=== PATIENT | male | born 1965 | race Caucasian/White ===

== ENCOUNTER → 2016-11-10 | Outpatient (CLI) | payer BC ==
[~2016-11-10] MED LIST: CLTR1C90 TP; IBP800T PO; TEST200V3 IM; TRAM50TA2 PO
--- OUTSIDE RECORDS SUMMARY | 2016-11-10 11:53 | XMS REPORT | Continuity of Care Document ---
Author Author [facility] Organization [facility] Address Unknown Phone Unavailable Care Team Providers Care Pig Farmer Name Role Phone RACHAEL FERRER PP Insurance Providers Payer Name Policy Number Subscriber Name Relationship Work Comp [id number] Elver Hartmann Jr 01 Self / Same As Patient Advance Directives Directive Response Recorded Date Advance Directives N 06/15/13 8:07pm Health Care Power of Collection Manager N 02/14/13 10:10am Organ Donor N 06/15/13 8:07pm Problems No Known Problems or Medical conditions. Social History History Response Recorded Date/Time Alcohol Use Denies Use 06/15/13 8:07pm Recreational Drug Use N 06/15/13 8:07pm Recent Foreign Travel N 06/15/13 8:07pm Sexually Transmitted Disease N 06/15/13 8 :07pm HIV/AIDS N 06/15/13 8:07pm Allergies, Adverse Reactions, Alerts Allergen Type Severity Reaction Last Updated No Known Drug Allergies 02/14/13 Medications Medication Dose Units Route Sig Qty Days Tramadol Hcl 50 Mg PO Q6H 20 Ibuprofen (Motrin) 800 Mg PO Q8HR PRN 30 Clotrimazole (Clotrimazole Cream) 0 TP BID Testosterone Cypionate (Testosterone Cyp (Non-Form)) 200 Mg IM MONTHLY Immunizations Name Given Type Date of Pneumonia Vaccine 07/24/11 H Response Recorded Date/Time Status not known Unknown Results No Known Relevant Diagnostic Tests, Laboratory Data and/or Discharge Summary. Procedures Procedure Code Date DIAGNOSTIC COLONOSCOPY 33860 02/14/13 Encounters Encounter Location Date/Time Departed Emergency Room [facility] 8:11pm
--- NOTE | 2016-11-10 13:18 | Diagnostic Imaging Report ---
PA and lateral views of the chest Indication: Cough Findings: The lungs are clear. The heart size is normal. There is no effusion or pneumothorax The mediastinum and [place] appear unremarkable. Impression: Unremarkable study. Dictated by: Dictated on workstation # [id number]
== END ==
LOC: RAD 11:50
PROVIDERS: ATTEND Family Medicine
DX: R05 Cough (principal)
CPT/HCPCS: 71020

== ENCOUNTER → 2017-01-28 | Outpatient (CLI) | payer BC ==
--- NOTE | 2017-01-28 10:39 | Diagnostic Imaging Report ---
EXAMINATION: 3 views of the right little toe. INDICATION: Injury. FINDINGS: There is an oblique lucency through the distal shaft of the proximal phalanx of the fifth toe. This is concerning for a nondisplaced fracture although there is no cortical step-off seen. No subluxation or dislocation. No radiopaque foreign body. IMPRESSION: Lucency along the distal shaft of the proximal phalanx of the fifth toe is questionable nondisplaced fracture. Correlate clinically and with followup radiographs in [address] Sanabria is called about the findings at time of dictation. Dictated by: Dictated on workstation # [id number]
== END ==
LOC: RAD 09:23
PROVIDERS: ATTEND Family Medicine
DX: S99.921A Unspecified injury of right foot, initial encounter (principal); W22.03XA Walked into furniture, initial encounter; Y92.59 Other trade areas as the place of occurrence of the external cause
CPT/HCPCS: 73660

== ENCOUNTER → 2018-05-04 | Outpatient (CLI) | payer BC ==
--- NOTE | 2018-05-04 15:35 | Diagnostic Imaging Report ---
Indication: Low back pain Lumbar spine AP and lateral views of the lumbar spine show normal vertebral body height and alignment. Disc spaces are well-maintained. Impression: Minimal degenerative disc changes at L2-3 with small osteophytes forming anteriorly. The lumbar spine is otherwise unremarkable. Dictated by: Dictated on workstation # [id number]
== END ==
LOC: RAD 13:52
PROVIDERS: ATTEND Family Medicine
DX: M25.78 Osteophyte, vertebrae (principal)
CPT/HCPCS: 72100

== ENCOUNTER → 2018-08-31 | Outpatient (CLI) | payer BC ==
--- NOTE | 2018-08-31 10:43 | Diagnostic Imaging Report ---
INDICATION: Medial left knee pain. TIME OF EXAM: 10:41 AM 3 views of the left knee were obtained. FINDINGS: The alignment is normal. The joint spaces are well maintained. Articular surfaces are smooth. No fracture, dislocation or effusion is seen. There is some mild fragmentation of the tibial tuberosity, likely owing to prior [place]-Schlatter disease. IMPRESSION: No acute abnormality is detected. Dictated by: Dictated on workstation # [id number]
== END ==
LOC: RAD 10:07
PROVIDERS: ATTEND Family Medicine
DX: M25.562 Pain in left knee (principal)
CPT/HCPCS: 73562

== ENCOUNTER → 2020-11-10 | Outpatient (CLI) | payer BC, OTHER ==
--- NOTE | 2020-11-10 14:16 | Diagnostic Imaging Report ---
INDICATION: Right breast lump. COMPARISON: No prior studies are available for comparison. TECHNIQUE: Unilateral right 2D and 3D diagnostic mammography was performed with CAD. FINDINGS: There is a mild amount of density in the retroareolar right breast. This is flame shaped and appears to represent gynecomastia. No discrete mass or malignant appearing microcalcifications are seen. The right axilla is unremarkable. IMPRESSION: The findings are most suggestive of gynecomastia in the retroareolar right breast, likely accounting for the palpable abnormality. Even so, sonographic interrogation of the retroareolar right breast is recommended and will be performed today. ACR BI-RADS Category 0: Incomplete. (Needs additional imaging evaluation). Result letter will be mailed to the patient. Note: At least 10% of breast cancer is not imaged by mammography. Dictated by: Dictated on workstation # [id number]
--- NOTE | 2020-11-10 14:33 | Diagnostic Imaging Report ---
INDICATION: Right breast lump. Correlation is made with diagnostic mammogram earlier same day. Sonographic interrogation of the retroareolar right breast was performed. There is ill-defined hypoechogenicity in the retroareolar right breast, most suggestive of gynecomastia. No discrete mass is detected. IMPRESSION: BI-RADS Category 2 Findings most suggestive of gynecomastia. Continued clinical and self breast exam is recommended to confirm stability of the area of palpable abnormality. Dictated by: Dictated on workstation # [id number]
== END ==
LOC: RAD 13:45
PROVIDERS: ATTEND Family Medicine
DX: N63.10 Unspecified lump in the right breast, unspecified quadrant (principal)
CPT/HCPCS: 76642; 77065; G0279

== ENCOUNTER 2021-08-19 05:33 | Outpatient (CLI) | payer OTHER ==
[~2021-08-19] VITALS: Ht 182.9 cm; Wt 166.8 kg
[2021-08-19] MEDS ORDERED: PRAZ2CAP2 PO (09:24)
[2021-08-19] MEDS ORDERED: TRAZ-227 PO (09:24)
[2021-08-19] MEDS ORDERED: DULO60CA59 PO (09:24)
[2021-08-20] MEDS ORDERED: LISI10TA25 PO (11:27)
== END 2021-08-20 12:20 | disposition home or self-care (01) ==
LOC: PREOP 05:33
PROVIDERS: ATTEND Surgery
DX: Z01.818 Encounter for other preprocedural examination (principal)

== ENCOUNTER 2021-08-26 09:24 | Day surgery (SDC) | payer OTHER ==
[~2021-08-26] VITALS: Ht 182.9 cm; Wt 166.8 kg
[~2021-08-26 09:24] MED LIST changes: +DULO60CA59 PO; +LISI10TA25 PO; +PRAZ2CAP2 PO; +TRAZ-227 PO
[2021-08-26] MEDS ORDERED: LACTATED RINGERS 1,000 ML IV STA (09:28)
[2021-08-26] MEDS ORDERED: LACTATED RINGERS 1,000 ML IV ONE (09:30)
[2021-08-26] MEDS ORDERED: LIDOCAINE JELLY 2% 6 ML SYRINGE MM PRN (09:30)
[2021-08-26 09:44] VITALS: BP 116/77
--- NOTE | 2021-08-26 10:35 | Conscious Sedation/ASA ---
Conscious Sedation Pre-Proced Time 10:00 ASA Score 2 For ASA 3 and 4: Consider anesthesia and medical clearance. Also, for patients with a history of failed moderate sedation consider anesthesia. Airway Lungs Heart ASA score ASA 1: a normal healthy patient ASA 2: a patient with a mild systemic disease (mid diabetes, controlled hypertension, obesity ASA 3: a patient with a severe systemic disease that limits activity (angina, COPD, prior Myocardial infarction) ASA 4: a patient with an incapacitating disease that is a constant threat to life (CHF, renal failure) ASA 5: a moribund patient not expected to survive 24 hrs. (ruptured aneurysm) ASA 6: a declared brain- patient whose organs are being harvested. For emergent operations, add the letter E after the classification Mallampati Classification Grade 2 Sedation Plan Analgesia, Amnesia, Plan communicated to team members, Discussed options with patient/fam, Discussed risks with patient/fam The patient is an appropriate candidate to undergo the planned procedure, sedation, and anesthesia. The patient immediately re-assessed prior to indication. GOLDY FRIEDMAN MD Aug 26, 2021 10:35
--- NOTE | 2021-08-26 10:35 | Progress Note-Pre Operative ---
Pre-Operative Progress Note H&P Reviewed The H&P was reviewed, patient examined and no changes noted. Date Seen by Provider: Aug 26, 2021 Time Seen by Provider: 10:00 Date H&P Reviewed: Aug 26, 2021 Time H&P Reviewed: 10:00 Pre-Operative Diagnosis: rectal bleed GOLDY FRIEDMAN MD Aug 26, 2021 10:35
[2021-08-26] MEDS ORDERED: PROPOFOL INJECTION 50 ML IV ONE (10:36)
[2021-08-26] MEDS ORDERED: MIDAZOLAM 2 MG/2 ML (VERSED) VIAL ONE (10:36)
[2021-08-26] MEDS ORDERED: KETAMINE SYRINGE 50 MG/5 ML SYRINGE ONE (10:36)
--- NOTE | 2021-08-26 10:36 | Discharge Inst-Surgical ---
D/C Lap Instructions-IDALIA Follow Up Appt Activity as tolerated High Fiber Diet 25g or more per day Avoid Alcohol, Caffeine, Spicy Reeves and Acid foods. Drink 64 fluid oz or more of fluids per day. Symptoms to Report: Fever over 101 degree F, Nausea/Vomiting If any problems/questions: Contact your physician or go to Emergency Room GOLDY FRIEDMAN MD Aug 26, 2021 10:36
[2021-08-26] MEDS ORDERED: ONDANSETRON 4 MG/2 ML (SDV) Z0FRAN IVP PRN (10:45)
[2021-08-26] MEDS ORDERED: ONDANSETRON 4 MG (ZOFRAN) ORAL DISSOLVE TAB PO PRN (10:45)
[2021-08-26 12:05] VITALS: BP 84/53
[2021-08-26 12:10] VITALS: BP 86/53
[2021-08-26 12:15] VITALS: BP 95/70
[2021-08-26 12:30] VITALS: BP 105/72
--- NOTE | 2021-08-26 13:01 | Progress Note-Post Operative ---
Post-Operative Progess Note Surgeon (s)/Supervisor Filtration (s) Surgeon GOLDY FRIEDMAN MD Supervisor Filtration: none Pre-Operative Diagnosis rectal bleed Post-Operative Diagnosis perianal hemangioma/a-v malformation, mild chronic stage 2 ext and int hemorrhoids, mild simoid diverticulosis. Procedure & Operative Findings Date of Procedure 08/26/21 Procedure Performed/Findings colonoscopy Anesthesia Type mac Estimated Blood Loss Estimated blood loss (mL): minimal Specimens/Packing Specimens Removed none GOLDY FRIEDMAN MD Aug 26, 2021 13:01
--- NOTE | 2021-08-26 13:02 | Anesthesia-General Post-Op ---
MAC Patient Condition Mental Status/LOC: Same as Preop Cardiovascular: Satisfactory Nausea/Vomiting: Absent Respiratory: Satisfactory Pain: Controlled Complications: Absent Post Op Complications Complications None Follow Up Care/Instructions Patient Instructions None needed. Anesthesiology Discharge Order Discharge Order Patient was doing well after the procedure and he was, no complaints, stable vital signs, no apparent adverse anesthesia problems. SANJAY MENDEZ DO Aug 26, 2021 13:02
--- NOTE | 2021-08-26 19:49 | OPERATIVE REPORT ---
DATE OF SERVICE: 08/26/2021 ATTENDING PRIMARY CARE PHYSICIAN: Mark Sanabria MD. PREOPERATIVE DIAGNOSIS: Rectal bleeding. POSTOPERATIVE DIAGNOSES: Perianal AV malformation, mild chronic stage II external and internal hemorrhoids, mild sigmoid diverticulosis. PROCEDURE PERFORMED: Colonoscopy. SURGEON: Goldy Friedman MD. ANESTHESIA: Monitored anesthesia care. ESTIMATED BLOOD LOSS: Minimal. FINDINGS: Perianal AV malformation, mild chronic stage II external and internal hemorrhoids, mild sigmoid diverticulosis. DISPOSITION: The patient tolerated the procedure well. INDICATIONS FOR PROCEDURE: The patient is a 56-year-old male referred over to us for episodes of intermittent rectal bleeding. He states that he would notice bright red blood as well as dark maroon blood. He also does report that he does have some episodes of constipation at times. He did have a colonoscopy approximately five years ago and he believes this to be normal. He does not report any family history of colon cancer. The patient was brought to the endoscopy suite and laid in the left lateral decubitus position. After adequate IV pain and sedative medications and monitored anesthesia care, digital rectal examination was performed. What was noticed was that there was perianal AV malformation not actively bleeding. There were mild chronic stage II external and internal hemorrhoids, not actively edematous nor inflamed and no bleeding. Normal sphincter tone was felt and there were no palpable masses. Prostate gland was palpable and appeared normal. The endoscope was then intubated into the anus and rectum gently insufflated. The endoscope was then advanced through the valve of [place] in the rectum with no polyps or any neoplasms identified. Through the sigmoid colon, mild sigmoid diverticulosis identified. The endoscope was then advanced through the remainder of the descending and ascending colon to the cecum, which were normal. No active bleeding sources as well as no polyps or any neoplasms. The endoscope was then slowly withdrawn while taking a second look with suction of residual air with no additional findings. The patient tolerated the procedure well. We feel that the potential bleeding sources may be hemorrhoids versus the perianal AV malformations. We will recommend a high fiber diet with soft stools on a daily basis; however, if he continues to have these episodes of rectal bleeding, he may benefit from a cauterization of the AV malformations. Job ID: [id number] DocumentID: [id number] Dictated Date: 08/26/2021 12:09:44 Executive Assistant To President Date: 08/26/2021 19:48:28 Dictated By: GOLDY FRIEDMAN MD MTDD
== END 2021-08-26 12:40 | disposition home or self-care (01) ==
LOC: ENDO 09:24
PROVIDERS: ATTEND Surgery
DX: K55.20 Angiodysplasia of colon without hemorrhage (principal); K92.1 Melena; K64.4 Residual hemorrhoidal skin tags; K64.1 Second degree hemorrhoids; K57.30 Diverticulosis of large intestine without perforation or abscess without bleeding; I10 Essential (primary) hypertension; J44.9 Chronic obstructive pulmonary disease, unspecified; E66.01 Morbid (severe) obesity due to excess calories; F43.10 Post-traumatic stress disorder, unspecified; Z68.43 Body mass index [BMI] 50.0-59.9, adult; Z79.899 Other long term (current) drug therapy; Z80.1 Family history of malignant neoplasm of trachea, bronchus and lung